=== PATIENT | female | born 1950 | race African-American/Black ===

== ENCOUNTER → 2016-10-05 | Outpatient (CLI) | payer OTHER ==
[~2016-10-05] MED LIST: CANA300T PO; CART240C4 PO; DORZ1SOL2 RIGHT EYE; DRIS8000 PO; GLUCTAB OR; HYDR-2768 PO; LATA0.00 RIGHT EYE; LORA5SOL3 PO; OMEP20TA PO; ROSU10 PO
[2016-10-05 09:18] LABS: HEMATOCRIT 41.7 % (35.0-46.0); MEAN CELL VOLUME 82.6 FL (80.0-100.0); MEAN CORPUSCULAR HGB CONC 32.7 % (32.0-36.0); PLATELET COUNT 340 TH/MM3 (150-450); RED BLOOD COUNT 5.05 MIL/MM3 (4.00-5.30); RED CELL DISTRIBUTION WIDTH 15.4 % (11.6-17.2)
[2016-10-05 09:19] LABS: HEMO FLAGS AUTO DIFF
[2016-10-05 09:42] LABS: ALKALINE PHOSPHATASE 92 U/L (45-117); ALT (GPT) 24 U/L (10-53); ANION GAP 8 MEQ/L (5-15); AST (GOT) 16 U/L (15-37); BICARBONATE 29.6 MEQ/L (21.0-32.0); BLOOD UREA NITROGEN 11 MG/DL (7-18); CHLORIDE 102 MEQ/L (98-107); GLOMERULAR FILTRATION RATE 67 ML/MIN (>89); GLUCOSE,FASTING 120 MG/DL (74-99); HDL CHOLESTEROL 52.4 MG/DL (40.0-60.0); LDL CHOLESTEROL 69 MG/DL (0-99); POTASSIUM 3.5 MEQ/L (3.5-5.1); SODIUM (NA) 140 MEQ/L (136-145); TOTAL BILIRUBIN ADULT 0.3 MG/DL (0.2-1.0)
[2016-10-05 10:09] LABS: BASOPHILS 2 % (0-2); NEUTROPHIL # MANUAL DIFF 4.1 TH/MM3 (1.8-7.7); POLYS (SEG NEUTROPHILS) 51 % (16-70); SCAN/DIFF FINAL DIFF MANUAL; WBC DIFF SAMPLE 100
== END ==
LOC: CLAB 08:51
PROVIDERS: ATTEND Family Medicine
DX: I10 Essential (primary) hypertension (principal); R91.8 Other nonspecific abnormal finding of lung field; E55.9 Vitamin D deficiency, unspecified; E11.9 Type 2 diabetes mellitus without complications; E78.2 Mixed hyperlipidemia; K22.70 Barrett's esophagus without dysplasia; J45.40 Moderate persistent asthma, uncomplicated; J30.9 Allergic rhinitis, unspecified; Z68.27 Body mass index [BMI] 27.0-27.9, adult
CPT/HCPCS: 36415; 80053; 80061; 82306; 85007; 85027

== ENCOUNTER 2017-01-30 22:39 | Observation (INO) | payer MEDICARE, OTHER ==
[~2017-01-30] VITALS: Ht 157.5 cm; Wt 68.0 kg
[2017-01-30 22:41] VITALS: BP 185/87; PULSE 87; RESP 16; TEMP 98.7; O2SAT 97
[2017-01-30 22:54] VITALS: BP 189/82; PULSE 16; PULSE 81; RESP 16
[2017-01-30 23:32] VITALS: BP 169/80; PULSE 73; RESP 20; O2SAT 98
[2017-01-30] MEDS ORDERED: FLUT1SPR5 EACH NARE (23:47)
[2017-01-30] MEDS ORDERED: HYDR25TA5 PO (23:47)
[2017-01-30] MEDS ORDERED: FLUT1INH INH ×2 (23:47)
[2017-01-30] MEDS ORDERED: vitamin D3 PO (23:47)
[2017-01-30] MEDS ORDERED: DORZ2SOL7 RIGHT EYE (23:47)
[2017-01-30] MEDS ORDERED: ROSU1TAB6 PO (23:47)
[2017-01-30] MEDS ORDERED: CART120C PO (23:47)
[2017-01-30] MEDS ORDERED: LATA0.002 RIGHT EYE (23:47)
[2017-01-30] MEDS ORDERED: METF500T PO (23:47)
[2017-01-30] MEDS ORDERED: MONT10TA4 PO (23:47)
[2017-01-30] MEDS ORDERED: DORZ2SOL RIGHT EYE (23:47)
[2017-01-30] MEDS ORDERED: EMPA1TAB3 PO (23:47)
[2017-01-30] MEDS ORDERED: zertec PO (23:47)
[2017-01-31] VITALS (8 sets, daily range): BP systolic 128–168; BP diastolic 66–103; PULSE 66–87; RESP 18–20; TEMP 98–98.1; O2SAT 94–98
[2017-01-31] MEDS ORDERED: SODIUM CHLORIDE 0.9% FLUSH 10 ML FLUSH IVF PRN
[2017-01-31] MEDS ORDERED: NITROGLYCERIN 2% OINT 1 GM PACKET TOP ONE
[2017-01-31] MEDS ORDERED: ASPIRIN 81 MG CHEW TAB PO ONE
--- NOTE | 2017-01-31 | PD ---
HPI Chief Complaint: Chest Pain Time Seen by Provider: 23:40 Travel History International Travel<30 days: No Contact w/Intl Traveler<30days: No Traveled to known affect area: No History of Present Illness HPI The patient is a 66 year old female who presents to the [facility] emergency department with a history of a sensation of fluttering in her chest that began at approximately 10 PM this evening. She was lying in bed when it occurred. She reports that her pulse palpated to be irregular. She reports that she felt Iike pulse was fast, however when she counted it was not. She reports that since then she's had intermittent chest pressure associated with this. The patient reports that the pain as a pressure/dull sensation. She reports that she is also having an intermittent "discomfort" in the left side of her jaw. She denies having any shortness of breath, nausea, vomiting, or diaphoresis associated with this. She denies having any prior history of cardiac disease. She does however have a history of diabetes, hyperlipidemia, and hypertension. She reports that she last had a stress test on approximately 2-3 years ago. On review of systems otherwise, the patient denies any recent fevers, worsening cough (she has a history of chronic cough for years), congestion, abdominal pain, diarrhea, urinary symptoms, or neurologic symptoms. [facility] Past Medical History Narrative Medical The patient's past medical history is significant for diabetes mellitus, acid reflux, Mendiola's esophagitis, hyperlipidemia, hypertension. Hx Anticoagulant Therapy: No Asthma: Yes Heart Rhythm Problems: No Cancer: No Cardiac Catheterization: No Cardiovascular Problems: Yes (htn) High Cholesterol: Yes (on meds) Congestive Heart Failure: No Diabetes: Yes (METFORMIN, JARDIANCE) Patient Takes Glucophage: Yes Diminished Hearing: No GERD: Yes Headaches: Yes (tonight and hx) Hepatitis: No Hiatal Hernia: Yes Heparin Induced Thrombocytopen: No Hypertension: Yes Medical other: Yes (REFLUX) Respiratory: Yes (ASTHMA) Myocardial Infarction: No Thyroid Disease: No Tetanus Vaccination: > 5 Years Influenza Vaccination: Yes ?: Not Past Surgical History Narrative Surgical The patient's past surgical history is significant for bilateral tubal ligation , right eye surgery 2, hysterectomy, Nancy fundoplication. AICD: No Coronary Artery Bypass Graft: No Eye Surgery: Yes (DETACTCHED RETINA RIGHT EYE REPAIR X2) Gynecologic Surgery: Yes (HYSTERECTOMY) Hysterectomy: Yes Joint Replacement: No Pacemaker: No Thoracic Surgery: Yes (RIGHT BREAST BX) Other Surgery: Yes (COLONOSCOPY AND ENDOSCOPY) Family History Family Myocardial Infarction: Yes Social History Alcohol Use: Yes (sip occ) Tobacco Use: No Substance Use: No Allergies-Medications (Allergen,Severity, Reaction): Coded Allergies: acetaminophen (Unverified Allergy, Severe, 01/16/17) propoxyphene (Unverified Allergy, Severe, 01/16/17) pentazocine (Unverified Allergy, Mild, Nausea/Vomiting, 01/16/17) Uncoded Allergies: MUCINEX (Allergy, Severe, 04/14/11) Reported Meds & Prescriptions Reported Meds & Active Scripts Active Reported Breo Ellipta Inh (Fluticasone/Vilanterol) 100-25 Mcg/Act Inh 1 Puff INH Use daily at the same time. Breo Ellipta Inh (Fluticasone/Vilanterol) 100-25 Mcg/Act Inh 1 Puff INH DAILY Use daily at the same time. Flonase Nasal [place] (Fluticasone Nasal [place]) 50 Mcg/Act [place] 50 Mcg EACH NARE Latanoprost Opth Drops (Latanoprost) 0.005% Drops 1 Drop RIGHT EYE HS Refrigerate until opened. Dorzolamide Opth Drops (Dorzolamide HCl) 2% Soln 1 Drop RIGHT EYE TID Cosopt Opth Drops (Dorzolamide-Timolol Opth Drops) 22.3-6.8 Mg/Ml Soln 1 Drop RIGHT EYE BID [zertec] 10 Mg PO DAILY [vitamin D3 ] 5,000 Unit PO DAILY Hydrochlorothiazide 25 Mg Tab 25 Mg PO DAILY Rosuvastatin (Rosuvastatin Calcium) 10 Mg Tab 10 Mg PO HS Jardiance (Empagliflozin) 25 Mg Tab 25 Mg PO DAILY Montelukast (Montelukast Sodium) 10 Mg Tab 10 Mg PO HS Metformin (Metformin HCl) 500 Mg Tab 500 Mg PO BID With meals Cartia Xt (Diltiazem ER 24 HR) 120 Mg Caper 240 Mg PO DAILY Review of Systems Except as stated in HPI: all other systems reviewed are Neg General / Constitutional: No: Fever Eyes: No: Visual changes HENT: No: Headaches, Congestion Cardiovascular: Positive: Chest Pain or Discomfort, No: Diaphoresis Respiratory: Positive: Cough (chronic cough), No: Shortness of Breath Gastrointestinal: No: Nausea, Vomiting, Diarrhea, Abdominal Pain Genitourinary: No: Dysuria Musculoskeletal: No: Pain Skin: No Rash Neurologic: No: Weakness, Focal Abnormalities, Change in Mentation, Slurred Speech, Sensory Disturbance Psychiatric: No: Depression Endocrine: No: Polydipsia Hematologic/Lymphatic: No: Easy Bruising Physical Exam Narrative General: The patient is a well-developed well-nourished female in no acute distress. Head and Neck exam: Head is normocephalic atraumatic. Eyes: EOMI, pupils and the left is round and reactive to light. Pupil on the right is irregular in shape related to prior eye surgery. Nose: Midline septum with pink mucous membranes Mouth: Dentition unremarkable. Moist mucus membranes. Posterior oropharynx is not erythematous. No tonsillar hypertrophy. Uvula midline. Airway patent. Neck: No palpable lymphadenopathy. No nuchal rigidity. No thyromegaly. Cardiovascular: Regular rate and rhythm without murmurs, gallops, or rubs. No pulse deficit to the extremities and simultaneous auscultation and palpation of her radial artery. Lungs: Clear to auscultation bilaterally. No wheezes, rhonchi, or rales. Abdomen: Soft, without tenderness to palpation in all 4 quadrants of the abdomen. No guarding, rebound, or rigidity. Negative [place] sign. Extremities: No clubbing, cyanosis, or edema. 2+ pulses in all 4 extremities. No calf tenderness on palpation. Back: No costovertebral angle tenderness to palpation. No spinous process tenderness to palpation. Neurologic Exam: Grossly nonfocal. Skin Exam: No rash noted. Intact skin that is warm and dry. Data Data Last Documented VS Vital Signs Date Time Temp Pulse Resp B/P (MAP) Pulse Ox O2 Delivery O2 Flow Rate FiO2 01/31/17 00:29 87 20 142/70 (94) 97 Room Air 141/68 (92) 01/30/17 22:41 98.7 Orders Orders Electrocardiogram (01/30/17 23:48) B-Type Natriuretic Peptide (01/30/17 23:48) Ckmb (Isoenzyme) Profile (01/30/17 23:48) Complete Blood Count With Diff (01/30/17 23:48) Comprehensive Metabolic Panel (01/30/17 23:48) Magnesium (Mg) (01/30/17 23:48) Prothrombin Time / Inr (Pt) (01/30/17 23:48) Act Partial Throm Time (Ptt) (01/30/17 23:48) Troponin I (01/30/17 23:48) Lipase (01/30/17 23:48) Chest, Single Ap (01/30/17 23:48) Ecg Monitoring (01/30/17 23:48) Bilateral Bp Monitoring (01/30/17 23:48) Iv Access Insert/Monitor (01/30/17 23:48) Oximetry (01/30/17 23:48) Oxygen Administration (01/30/17 23:48) Aspirin Chew (Aspirin Chew) (01/31/17 00:00) Nitroglycerin 2% Oint (Nitroglycerin 2% (01/31/17 00:00) Sodium Chloride 0.9% Flush (Ns Flush) (01/31/17 00:00) Nitroglycerin Sl (Nitrostat Sl) (01/31/17 00:00) CKMB (01/30/17 23:55) CKMB% (01/30/17 23:55) Admit Order (Ed Use Only) (01/31/17 01:17) Potassium Chloride (Kcl) (01/31/17 01:30) Labs Laboratory Tests Test 01/30/17 23:55 White Blood Count 10.5 TH/MM3 Red Blood Count 5.13 MIL/MM3 Hemoglobin 14.3 GM/DL Hematocrit 43.4 % Mean Corpuscular Volume 84.5 FL Mean Corpuscular Hemoglobin 27.9 PG Mean Corpuscular Hemoglobin Concent 33.0 % Red Cell Distribution Width 15.6 % Platelet Count 316 TH/MM3 Mean Platelet Volume 8.6 FL Neutrophils (%) (Auto) 57.6 % Lymphocytes (%) (Auto) 32.6 % Monocytes (%) (Auto) 6.9 % Eosinophils (%) (Auto) 1.2 % Basophils (%) (Auto) 1.7 % Neutrophils # (Auto) 6.0 TH/MM3 Lymphocytes # (Auto) 3.4 TH/MM3 Monocytes # (Auto) 0.7 TH/MM3 Eosinophils # (Auto) 0.1 TH/MM3 Basophils # (Auto) 0.2 TH/MM3 CBC Comment DIFF FINAL Differential Comment Prothrombin Time 10.4 SEC Prothromb Time International Ratio 0.9 RATIO Activated Partial Thromboplast Time 27.8 SEC Blood Urea Nitrogen 10 MG/DL Creatinine 1.10 MG/DL Random Glucose 137 MG/DL Total Protein 7.5 GM/DL Albumin 4.0 GM/DL Calcium Level 9.2 MG/DL Magnesium Level 2.0 MG/DL Alkaline Phosphatase 106 U/L Aspartate Amino Transf (AST/SGOT) 12 U/L Alanine Aminotransferase (ALT/SGPT) 28 U/L Total Bilirubin 0.3 MG/DL Sodium Level 142 MEQ/L Potassium Level 3.2 MEQ/L Chloride Level 104 MEQ/L Carbon Dioxide Level 26.5 MEQ/L Anion Gap 12 MEQ/L Estimat Glomerular Filtration Rate 60 ML/MIN Total Creatine Kinase 133 U/L Creatine Kinase MB 0.6 NG/ML Troponin I LESS THAN 0.02 NG/ML B-Type Natriuretic Peptide 4 PG/ML Lipase 172 U/L MDM Medical Decision Making Medical Screen Exam Complete: Yes Emergency Medical Condition: Yes Medical Record Reviewed: Yes Interpretation(s) Last Impressions Chest X-Ray 01/30/17 7323 Signed Impressions: Service Date/Time: Monday, January 30, 2017 23:59 - CONCLUSION: No acute cardiopulmonary abnormality is identified. Link Maxwell MD Differential Diagnosis Acute coronary syndrome, versus SVT, versus PACs, versus V. tach Narrative Course During the course of the patients emergency department visit, the patients history, examination, and differential diagnosis were reviewed with the patient. The patient had IV access obtained and blood work sent for analysis. The patient had an EKG done on arrival that shows a sinus rhythm with a sinus arrhythmia, heart rate is 76, nonspecific T-wave abnormalities, T waves are inverted in V1, no acute ST segment elevation. QRS duration is 84 ms, QTC 342 ms. The patient was initially provided 324 mg of aspirin by mouth. The patient was given sublingual nitroglycerin 1, nitroglycerin 1 inch to the chest wall. The patients laboratory studies were reviewed and remarkable for a CBC that is within normal limits, CMP is remarkable for potassium of 3.2, her potassium was supplemented with 20 mg once a potassium chloride. AST is 12, glucose 137, initial set of cardiac enzymes are negative, BNP 4, lipase 172, PT PTT within normal limits. Radiology studies were reviewed and remarkable for a chest x-ray that showed no acute cardiopulmonary disease. The patient was agreeable with the plan for admission to the chest pain center for rule out serial cardiac enzyme protocol followed by stress testing. The patients results were discussed with the patient, including the plan of care. I explained that further testing and/ or monitoring is indicated based on the patients history, examination, and/ or laboratory findings. Therefore, I recommended admission for additional evaluation. The patient expressed understanding and was agreeable with this plan. The patient was admitted to the hospital in stable condition and sent to a bed under the care of chest pain center. Diagnosis Primary Impression: Chest pain, rule out acute myocardial infarction Admitting Information Admitting Physician Requests: Saima Bourgeois MD Jan 31, 2017 00:00
[2017-01-31] MEDS: NITROGLYCERIN 0.4 MG SL 25 TABS/BTL SL ONE ×2 (00:01→00:24)
--- NOTE | 2017-01-31 00:08 | RADRPT ---
EXAM DATE/TIME: 01/30/2017 23:59 [facility] COMPARISON: No previous studies available for comparison. INDICATIONS : Chest pain. MEDICAL HISTORY : None. SURGICAL HISTORY : None. ENCOUNTER: Initial ACUITY: 1 day PAIN SCORE: 4/10 LOCATION: Left chest FINDINGS: Portable AP view of the chest demonstrates a normal-sized cardiac silhouette. No effusion, consolidat ion, or pneumothorax is visualized. The bones and soft tissues demonstrate no acute abnormality. EKG lines overlie the patient. Lungs are underinflated. CONCLUSION: No acute cardiopulmonary abnormality is identified. Link Maxwell MD on January 31, 2017 at 0:06 Board Certified Radiologist. This report was verified electronically.
[2017-01-31 00:20] LABS: BASOPHIL # 0.2 TH/MM3 (0-0.2); BASOPHIL % 1.7 % (0.0-2.0); EOSINOPHIL # 0.1 TH/MM3 (0-0.4); EOSINOPHIL % 1.2 % (0.0-4.0); HEMATOCRIT 43.4 % (35.0-46.0); HEMO FLAGS DIFF FINAL; LYMPH % 32.6 % (9.0-44.0); LYMPHOCYTE # 3.4 TH/MM3 (1.0-4.8); MEAN CELL VOLUME 84.5 FL (80.0-100.0); MEAN CORPUSCULAR HEMOGLOBIN 27.9 PG (27.0-34.0); MONO % 6.9 % (0.0-8.0); NEUT % 57.6 % (16.0-70.0); PLATELET COUNT 316 TH/MM3 (150-450); RED BLOOD COUNT 5.13 MIL/MM3 (4.00-5.30); RED CELL DISTRIBUTION WIDTH 15.6 % (11.6-17.2); WHITE BLOOD COUNT 10.5 TH/MM3 (4.0-11.0)
[2017-01-31 00:31] LABS: APTT (PATIENT) 27.8 SEC (24.3-30.1); INTERNATIONAL NORMALIZED RATIO 0.9 RATIO; PROTHROMBIN TIME - PATIENT 10.4 SEC (9.8-11.6)
[2017-01-31 00:33] LABS: ANION GAP 12 MEQ/L (5-15); AST (GOT) 12 U/L (15-37); BICARBONATE 26.5 MEQ/L (21.0-32.0); BLOOD UREA NITROGEN 10 MG/DL (7-18); CHLORIDE 104 MEQ/L (98-107); GLOMERULAR FILTRATION RATE 60 ML/MIN (>89); POTASSIUM 3.2 MEQ/L (3.5-5.1); SODIUM (NA) 142 MEQ/L (136-145)
[2017-01-31 00:34] LABS: ALT (GPT) 28 U/L (10-53)
[2017-01-31 00:38] LABS: ALKALINE PHOSPHATASE 106 U/L (45-117); CREATINE KINASE 133 U/L (26-192); TOTAL BILIRUBIN ADULT 0.3 MG/DL (0.2-1.0)
[2017-01-31 00:52] LABS: CKMB 0.6 NG/ML (0.5-3.6)
[2017-01-31] MEDS ORDERED: POTASSIUM CHLORIDE 20 MEQ CONTROLLED RELEASE TAB PO ONE (01:30)
[2017-01-31] MEDS ORDERED: SODIUM CHLORIDE 0.9% FLUSH 10 ML FLUSH IV FLUSH PRN (02:00)
[2017-01-31 04:07] LABS: CREATINE KINASE 115 U/L (26-192)
[2017-01-31 04:20] LABS: CKMB 0.5 NG/ML (0.5-3.6)
[2017-01-31 07:44] LABS: CREATINE KINASE 105 U/L (26-192)
[2017-01-31 07:57] LABS: CKMB 0.5 NG/ML (0.5-3.6)
--- NOTE | 2017-01-31 08:36 | HHI.HP ---
HPI Primary Care Physician Adrian Spain MD Chief Complaint Cardiac complaint History of Present Illness 66-year-old female with history of hypertension and diabetes presents to emergency room for further evaluation palpitations. Onset last night 10 PM. Location substernal. Characterized as a pounding and irregular heart beat. No chest pain or pressure. No associated symptoms of nausea, vomiting, diaphoresis , dizziness, or shortness of breath. Duration one hour. No known precipitating or relieving factors. Endorses similar discomfort in the past and shorter duration. Has notified her PCP regarding palpitations in the past. Review of Systems General: No fatigue,weakness, fever, chills, or recent illness. Has been in her general state of health. HEENT: History of x2 retinal detachments. No LI. CV: As stated above. No current CP or pressure. Reports long history of intermitted palpitations. Does not develop dizziness with palpations. No intermittent leg pain. RESP: No SOB, cough, wheeze, or sputum production. GI: No nausea, vomiting, bowel changes, diarrhea, pain, distention, melena, or blood in the stool. Occasional dysphasia, chronic stable she relates to long history acid reflux. Nissenwrap procedure 4 years ago. No change in appetite, no unintentional weight gain or weight loss. : No dysuria, no frequent UTIs, no history of kidney stones EXT: Occasional intermittent dependent lower leg edema relieved with elevation of legs, no paraesthesias. MS: No discomfort or change in ROM NEURO: No difficulty with balance, LOC, motor/sensory deficits PSYCH: No anxiety, depression, or situation stress SKIN: No rashes, no concerning lesions Past Family Social History Allergies: Coded Allergies: acetaminophen (Unverified Allergy, Severe, 01/16/17) propoxyphene (Unverified Allergy, Severe, 01/16/17) pentazocine (Unverified Allergy, Mild, Nausea/Vomiting, 01/16/17) Uncoded Allergies: MUCINEX (Allergy, Severe, 04/14/11) Past Medical History Diabetes-non insulin dependent type II, HTN, hyperlipidemia, Mendiola's esophagus Past Surgical History Hysterectomy, x2 Right eye surgery for retinal detachment, Nancy Fundoplication (04/17/11), Tubal ligation Reported Medications Active Reported Breo Ellipta Inh (Fluticasone/Vilanterol) 100-25 Mcg/Act Inh 1 Puff INH Use daily at the same time. Breo Ellipta Inh (Fluticasone/Vilanterol) 100-25 Mcg/Act Inh 1 Puff INH DAILY Use daily at the same time. Flonase Nasal [place] (Fluticasone Nasal [place]) 50 Mcg/Act [place] 50 Mcg EACH NARE Latanoprost Opth Drops (Latanoprost) 0.005% Drops 1 Drop RIGHT EYE HS Refrigerate until opened. Dorzolamide Opth Drops (Dorzolamide HCl) 2% Soln 1 Drop RIGHT EYE TID Cosopt Opth Drops (Dorzolamide-Timolol Opth Drops) 22.3-6.8 Mg/Ml Soln 1 Drop RIGHT EYE BID [zyrtec] 10 Mg PO DAILY [vitamin D3 ] 5,000 Unit PO DAILY Hydrochlorothiazide 25 Mg Tab 25 Mg PO DAILY Rosuvastatin (Rosuvastatin Calcium) 10 Mg Tab 10 Mg PO HS Jardiance (Empagliflozin) 25 Mg Tab 25 Mg PO DAILY Montelukast (Montelukast Sodium) 10 Mg Tab 10 Mg PO HS Metformin (Metformin HCl) 500 Mg Tab 500 Mg PO BID With meals Cartia Xt (Diltiazem ER 24 HR) 120 Mg Caper 240 Mg PO DAILY Active Ordered Medications Current Medications Medications (Trade) Dose Ordered Sig/Igor Route Start Time Stop Time Status Last Admin (NS Flush) 2 ml UNSCH PRN IVF 01/31/17 00:00 (NS Flush) 2 ml UNSCH PRN IV FLUSH 01/31/17 02:00 (NS Flush) 2 ml BID IV FLUSH 01/31/17 09:00 Family History Noncontributory for early onset cardiovascular disease. Social History Known diabetes, hyperlipidemia, and hypertension. No known coronary artery disease. Lifelong nonsmoker. Denies any alcohol intake. No illegal drug use. . Denies any purposeful daily exercise. Past Cardiac Testing 05/16/10-Treadmill stress test-negative for stress induced ischemia. walked 6 minutes 39 seconds Physical Exam Vital Signs Vital Signs Date Time Temp Pulse Resp B/P (MAP) Pulse Ox O2 Delivery O2 Flow Rate FiO2 01/31/17 07:37 98.0 79 18 130/73 (92) 94 01/31/17 03:59 97 01/31/17 03:01 98.1 66 18 131/66 (87) 97 01/31/17 01:32 73 18 128/66 (86) 98 Room Air 01/31/17 00:29 87 20 142/70 (94) 97 Room Air 141/68 (92) 01/31/17 00:24 Room Air 01/31/17 00:24 96 Room Air 01/31/17 00:01 168/103 (124) 01/30/17 23:32 73 20 169/80 (109) 98 Room Air 01/30/17 23:32 99 Room Air 01/30/17 22:54 81 16 189/82 (117) 01/30/17 22:41 98.7 87 16 185/87 (119) 97 Room Air Physical Exam GENERAL: Alert WN, WD, NAD, pleasant, female who appears younger than stated age NECK: Supple, no masses, trachea midline CV: Regular, irregularly rate, without murmur, rub, gallop, no JVD, S1-S2 no S3- S4. No carotid or femoral bruits. RESP: Clear lungs throughout bilateral, no crackles, wheeze, rhonchi, symmetrical chest rise, nonlabored, able to speak in full sentences ABD: Soft, NT, ND, no masses, positive bowel tones BACK: No CVAT, no scoliosis EXT: Pulses +24, no dependent edema MS: Normal tone 4 extremities, nontender, no obvious deformities, full range of motion NEURO: CN II through CN XII grossly intact, motor strength 5/5,L PSYCH: A+O 3, pleasant affect, appropriate speech, appropriate mood and affect , insight and judgment SKIN: Normal turgor, normal texture, no lesions, no rashes, brisk cap refill Laboratory Laboratory Tests Test 01/30/17 23:55 01/31/17 03:00 01/31/17 06:40 White Blood Count 10.5 Red Blood Count 5.13 Hemoglobin 14.3 Hematocrit 43.4 Mean Corpuscular Volume 84.5 Mean Corpuscular Hemoglobin 27.9 Mean Corpuscular Hemoglobin Concent 33.0 Red Cell Distribution Width 15.6 Platelet Count 316 Mean Platelet Volume 8.6 Neutrophils (%) (Auto) 57.6 Lymphocytes (%) (Auto) 32.6 Monocytes (%) (Auto) 6.9 Eosinophils (%) (Auto) 1.2 Basophils (%) (Auto) 1.7 Neutrophils # (Auto) 6.0 Lymphocytes # (Auto) 3.4 Monocytes # (Auto) 0.7 Eosinophils # (Auto) 0.1 Basophils # (Auto) 0.2 CBC Comment DIFF FINAL Differential Comment Prothrombin Time 10.4 Prothromb Time International Ratio 0.9 Activated Partial Thromboplast Time 27.8 Blood Urea Nitrogen 10 Creatinine 1.10 Random Glucose 137 Total Protein 7.5 Albumin 4.0 Calcium Level 9.2 Magnesium Level 2.0 Alkaline Phosphatase 106 Aspartate Amino Transf (AST/SGOT) 12 Alanine Aminotransferase (ALT/SGPT) 28 Total Bilirubin 0.3 Sodium Level 142 Potassium Level 3.2 Chloride Level 104 Carbon Dioxide Level 26.5 Anion Gap 12 Estimat Glomerular Filtration Rate 60 Total Creatine Kinase 133 115 105 Creatine Kinase MB 0.6 0.5 0.5 Troponin I LESS THAN 0.02 LESS THAN 0.02 LESS THAN 0.02 B-Type Natriuretic Peptide 4 Lipase 172 Result Diagram: 01/30/17 23501/30/17 235 Imaging Last Impressions Chest X-Ray 01/30/178 Signed Impressions: Service Date/Time: Monday, January 30, 2017 23:59 - CONCLUSION: No acute cardiopulmonary abnormality is identified. Link Maxwell MD Course EKG 1st degree AVB, NSR, normal axis, no st t segment changes Caprini VTE Risk Assessment Caprini VTE Risk Assessment: Mod/High Risk (score >= 2) Caprini Risk Assessment Model Point Value = 1 Point Value = 2 Point Value = 3 Point Value = 5 Age 41-60 Minor surgery BMI > 25 kg/m2 Swollen legs Varicose veins or History of unexplained or recurrent spontaneous Oral contraceptives or hormone replacement Sepsis (< 1 month) Serious lung disease, including pneumonia (< 1 month) Abnormal pulmonary function Acute myocardial infarction Congestive heart failure (< 1 month) History of inflammatory bowel disease Medical patient at bed rest Age 61-74 Arthroscopic surgery Major open surgery (> 45 min) Laparoscopic surgery (> 45 min) Malignancy Confined to bed (> 72 hours) Immobilizing plaster cast Central venous access Age >= 75 History of VTE Family history of VTE Factor V Leiden Prothrombin 29621C Lupus anticoagulant Anticardiolipin antibodies Elevated serum homocysteine Heparin-induced thrombocytopenia Other congenital or acquired thrombophilia Stroke (< 1 month) Elective arthroplasty Hip, pelvis, or leg fracture Acute spinal cord injury (< 1 month) Prophylaxis Regimen Total Risk Factor Score Risk Level Prophylaxis Regimen 0-1 Low Early ambulation 2 Moderate Order ONE of the following: *Sequential Compression Device (SCD) *Heparin 5000 units SQ BID 3-4 Higher Order ONE of the following medications: *Heparin 5000 units SQ TID *Enoxaparin/Lovenox 40 mg SQ daily (WT < 150 kg, CrCl > 30 mL/min) *Enoxaparin/Lovenox 30 mg SQ daily (WT < 150 kg, CrCl > 10-29 mL/min) *Enoxaparin/Lovenox 30 mg SQ BID (WT < 150 kg, CrCl > 30 mL/min) AND/OR *Sequential Compression Device (SCD) 5 or more Highest Order ONE of the following medications: *Heparin 5000 units SQ TID (Preferred with Epidurals) *Enoxaparin/Lovenox 40 mg SQ daily (WT < 150 kg, CrCl > 30 mL/min) *Enoxaparin/Lovenox 30 mg SQ daily (WT < 150 kg, CrCl > 10-29 mL/min) *Enoxaparin/Lovenox 30 mg SQ BID (WT < 150 kg, CrCl > 30 mL/min) AND *Sequential Compression Device (SCD) Assessment and Plan Assessment and Plan #1 Palpations-admitted to chest pain center. Ruled out with 3 sets EKGs, cardiac enzymes, and monitored overnight. Seen and evaluated by Dr. Miguel Berrios. Proceed with chemical stress test. If unremarkable, will later discharge this afternoon. Patient agreeable to plan of care. Reassurance provided palpitations benign most likely related to PVCs. shelter monitor reviewed and without acute findings. #2 Diabetes-hold metformin and Jardiance #3 Hypertension-continue diltiazem and HCTZ, discussed importance of tight blood pressure control and following a low sodium diet, increasing her daily activity including purposeful cardiovascular exercise. Darlin Salmeron Jan 31, 2017 08:36
[2017-01-31] MEDS ORDERED: SODIUM CHLORIDE 0.9% FLUSH 10 ML FLUSH IV FLUSH SCH (09:00)
[2017-01-31] MEDS ORDERED: REGADENOSON INJ 0.4 MG/5 ML SYR ONE (10:54)
[2017-01-31] MEDS ORDERED: HYDROCHLOROTHIAZIDE 25 MG TAB PO SCH (11:15)
[2017-01-31] MEDS ORDERED: DILTIAZEM-CD 120 MG CAP ER PO SCH (11:15)
[2017-01-31] MEDS ORDERED: RESP: ALBUTEROL 2.5 MG/3 ML NEB (PRN) NEB (11:30)
[2017-01-31] MEDS ORDERED: FLUTICASONE 100 MCG/VILANTEROL 25 MCG INHALER INH SCH (12:00)
--- NOTE | 2017-01-31 13:14 | RADRPT ---
EXAM DATE/TIME: 01/31/2017 10:38 [facility] COMPARISON: No previous studies available for comparison. INDICATIONS : Chest pressure andfluttering feeling. Angina. DOSE: 25.8 mCi Tc99m Myoview at stress. 8.4 mCi Tc99m Myoview at rest. 0.4 mg Lexiscan STRESS SYMPTOMS: Dyspnea, abdominal cramping and headache. EJECTION FRACTION: > 70% MEDICAL HISTORY : Gastroesophageal reflux disease. Hypercholesterolemia. Hypertension. Asthma. SURGICAL HISTORY : Hysterectomy. ENCOUNTER: Initial ACUITY: 1 day PAIN SCALE: 3/10 LOCATION: chest TECHNIQUE: The patient underwent pharmacologic stress with infusion of prescribed dose. Continuous ECG tracing was monitored during stress. Gated SPECT imaging was performed after stress and conventional SPECT i maging was performed at rest. The examination was performed on a SPECT/CT scanner, both attenuation and non-corrected datasets were reviewed. FINDINGS: DISTRIBUTION: The maximum perfused segment at stress is in the posterobasal wall. PERFUSION STUDY: The pattern of perfusion at stress is within normal limits. GATED STUDY: There is intact wall motion and thickening without hypokinetic or dyskinetic segments. CONCLUSION: Normal examination. RISK CATEGORY: Low (<1% Annual Mortality Rate) Link Lunsford MD on January 31, 2017 at 13:11 Board Certified Radiologist. This report was verified electronically.
--- NOTE | 2017-01-31 13:24 | HHI.DCPOC ---
Discharge Care Plan Diagnosis: (1) Atypical chest pain Goals to Promote Your Health * To prevent worsening of your condition and complications * To maintain your health at the optimal level Directions to Meet Your Goals Take your medications as prescribed Follow your dietary instruction Follow activity as directed Keep your appointments as scheduled Take your immunizations and boosters as scheduled If your symptoms worsen call your PCP, if no PCP go to Urgent Care Center or Emergency Room Smoking is Dangerous to Your Health. Avoid second hand smoke Call the 24-hour hour crisis hotline for domestic abuse at Darlin Salmeron Jan 31, 2017 13:24
--- NOTE | 2017-02-01 18:17 | TR ---
Date Performed: 01/31/2017 Time Performed: 11:21:07 DOCTOR: Gabby Garcia DRUG LIST: CLINICAL HISTORY: REASON FOR TEST: CHEST PAIN REASON FOR ENDING: OBSERVATION: CONCLUSION: Lexiscan stress test was performed under standard four minute protocol. Radionuclid e was injected one minute prior to ending the test. No electrocardiographic abormalities were present to suggest ischemia. Nuclear imaging and interpretation are pending. COMMENTS:
--- NOTE | 2017-02-01 18:19 | EKG ---
Date Performed: 01/31/2017 Time Performed: 06:57:59 PTAGE: 66 years EKG: Sinus rhythm MINIMAL VOLTAGE CRITERIA FOR LVH, CONSIDER NORMAL VARIANT BORDERLINE ECG Since PREVIOUS TRACING , no significant change noted PREVIOUS TRACIN01/31/2017 06.57 DOCTOR: Gabby Garcia Interpretating Date/Time 02/01/2017 18:18:52
--- NOTE | 2017-02-01 18:19 | EKG ---
Date Performed: 01/31/2017 Time Performed: 02:58:30 PTAGE: 66 years EKG: Sinus rhythm WITH FIRST DEGREE AV BLOCK MODERATE VOLTAGE CRITERIA FOR LVH, CONSIDER NORMAL VARIANT ABNORMAL ECG S wenceslao PREVIOUS TRACING , no significant change noted PREVIOUS TRACIN01/31/2017 02.57 DOCTOR: Gabby Garcia Interpretating Date/Time 02/01/2017 18:19:36
--- NOTE | 2017-02-01 18:20 | EKG ---
Date Performed: 01/30/2017 Time Performed: 23:04:58 PTAGE: 66 years EKG: Sinus rhythm WITH SINUS ARRHYTHMIA VOLTAGE CRITERIA FOR LVH NONSPECIFIC T-WAVE ABNORMALITY ABNORMAL ECG Since PREVIOUS TRACING , no significant change noted PREVIOUS TRACIN09/01/2015 11.55 DOCTOR: Gabby Garcia Interpretating Date/Time 02/01/2017 18:19:58
[2017-02-02] MEDS ORDERED: CHOL5000 PO (10:56)
[2017-02-02] MEDS ORDERED: CETI10 PO (10:56)
== END 2017-01-31 17:22 | disposition home or self-care (01) ==
LOC: NEPE 22:39 → NEDA 01-31 01:19 → NEPHCDU 01-31 02:15
PROVIDERS: ADMIT Internal Medicine Interventional Cardiology; ATTEND Internal Medicine Interventional Cardiology
DX: R07.89 Other chest pain (principal); R00.2 Palpitations; E11.9 Type 2 diabetes mellitus without complications; I10 Essential (primary) hypertension; K22.70 Barrett's esophagus without dysplasia; K21.9 Gastro-esophageal reflux disease without esophagitis; J45.909 Unspecified asthma, uncomplicated; E78.00 Pure hypercholesterolemia, unspecified; R51 Headache; R94.31 Abnormal electrocardiogram [ECG] [EKG]
CPT/HCPCS: 71010; 78452; 80053; 82550; 82552; 83690; 83735; 83880; 84484; 85025; 85610; 85730; 93005; 93017; 99285; A9502; G0378; J2785

== ENCOUNTER → 2017-07-16 | Outpatient (CLI) | payer OTHER ==
[~2017-07-16] MED LIST changes: -CANA300T PO; +CART120C PO; -CART240C4 PO; +CETI10 PO; +CHOL5000 PO; -DORZ1SOL2 RIGHT EYE; +DORZ2SOL7 RIGHT EYE; -DRIS8000 PO; +EMPA1TAB3 PO; +FLUT1INH INH; +FLUT1SPR5 EACH NARE; -GLUCTAB OR; -HYDR-2768 PO; +HYDR25TA5 PO; -LATA0.00 RIGHT EYE; +LATA0.002 RIGHT EYE; -LORA5SOL3 PO; +METF500T PO; +MONT10TA4 PO; -OMEP20TA PO; -ROSU10 PO; +ROSU1TAB6 PO
[2017-07-16 10:13] LABS: BASOPHIL # 0.1 TH/MM3 (0-0.2); BASOPHIL % 1.3 % (0.0-2.0); EOSINOPHIL # 0.2 TH/MM3 (0-0.4); EOSINOPHIL % 3.1 % (0.0-4.0); HEMATOCRIT 42.1 % (35.0-46.0); HEMOGLOBIN 13.5 GM/DL (11.6-15.3); LYMPH % 30.9 % (9.0-44.0); LYMPHOCYTE # 2.2 TH/MM3 (1.0-4.8); MEAN CELL VOLUME 85.5 FL (80.0-100.0); MEAN CORPUSCULAR HEMOGLOBIN 27.4 PG (27.0-34.0); MEAN CORPUSCULAR HGB CONC 32.1 % (32.0-36.0); MEAN PLATELET VOLUME 8.5 FL (7.0-11.0); MONO % 8.1 % (0.0-8.0); MONOCYTE # 0.6 TH/MM3 (0-0.9); NEUT % 56.6 % (16.0-70.0); PLATELET COUNT 291 TH/MM3 (150-450); RED BLOOD COUNT 4.93 MIL/MM3 (4.00-5.30); RED CELL DISTRIBUTION WIDTH 16.1 % (11.6-17.2); WHITE BLOOD COUNT 7.1 TH/MM3 (4.0-11.0)
[2017-07-16 10:40] LABS: CHOLESTEROL/ HDL RATIO 2.81 RATIO; HDL CHOLESTEROL 56.8 MG/DL (40.0-60.0)
== END ==
LOC: CLAB 09:30
PROVIDERS: ATTEND Family Medicine
DX: E78.2 Mixed hyperlipidemia (principal); E55.9 Vitamin D deficiency, unspecified; R05 Cough
CPT/HCPCS: 36415; 80061; 82306; 82785; 85025; 86140

== ENCOUNTER → 2017-10-17 | Outpatient (CLI) | payer OTHER, MEDICARE ==
[~2017-10-17] VITALS: Ht 157.5 cm; Wt 69.6 kg
[~2017-10-17] MED LIST changes: +CHLORHEXIDINE GLUCONATE 2 % 1 PACK (2 CLOTHS) TOPICAL PRN; +ESTR1TAB PO; +LACTATED RINGER'S 1000 ML IV PRN; +LIDOCAINE HCL 1% PF 5 ML SYRINGE OTHER ONE; +METOPROLOL TARTRATE 25 MG TAB PO PRN; +OXYB5TAB8 PO; +PHENYLEPH/NS 1000 MCG/10 ML SYR IV ONE; +POVIDONE IODINE 5% (ANTISEPSIS KIT) 4 APPLICATIONS EACH NARE PRN; +PROPOFOL 200 MG/20 ML AMP IV ONE; +SODIUM CHLORID 0.9% 500 ML IV PRN
--- NOTE | 2017-10-17 13:31 | GIPROC ---
[facility] [address] [facility]. 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 She experiences dysphagia for solids occasionally. PROCEDURE PERFORMED: EGD w/ biopsy EGD w/ balloon dilation of esophagus MEDICATIONS: Per Anesthesia and None. TOPICAL ANESTHETIC: CONSENT: The patient understands the risks and benefits of the procedure and understands that these risks include, but are not limited to: sedation, allergic reaction, infection, perforation and/or bleeding. Alternative means of evaluation and treatment include, among others: physical exam, x-rays, and/or surgical intervention. The patient elects to proceed with this endoscopic procedure. medical equipment was checked for proper function. Hand hygiene and appropriate measures for infection prevention was taken. After the risks, benefits and alternatives of the procedure were thoroughly explained, Informed consent was verified, confirmed and timeout was successfully executed by the treatment team. The patient was anesthetized with topical anesthesia and the [employer] Tele[employer] [id number] endoscope was introduced through the mouth and advanced to the . Retroflexion was performed and was normal The gastroscope was then slowly withdrawn and removed. A small island of columnar mucosa was noted just proximal to the GE junction; biopsies were taken. A mild Schatzki ring was noted at the G E junction, at 35cm from the incisors. It was dilated to 20mm using an Olympus, 18-19-20mm hydrostatic dilating balloon. Even at full inflation. the balloon did not grab the ring, suggesting the ring was wider than 20mm. The stomach, pylorus, duodenal bulb and sweep appeared normal. ADVERSE EVENTS: There were no complications. IMPRESSIONS: Retroflexion was performed and was normal. As above. RECOMMENDATIONS: Resume anti-reflux regimen and omeprazole. Will contact patient with biopsy results. Repeat EGD in three years. Cut food small and chew thoroughly. PATIENT CONDITION: stable DISPOSITION: REPEAT EXAM: Temo Medina MD eSigned: Temo Medina MD 10/17/2017 1:31 PM cc: Adrian Spain M.D. PATIENT NAME: Okeefe Allison G MR#: [id number]
[2017-10-17 13:58] VITALS: BP 129/82; PULSE 73; RESP 20; TEMP 98; O2SAT 97
== END ==
LOC: HSDC 10:22
DX: K22.2 Esophageal obstruction (principal); K22.70 Barrett's esophagus without dysplasia; K20.9 Esophagitis, unspecified; I10 Essential (primary) hypertension; E11.9 Type 2 diabetes mellitus without complications; E78.00 Pure hypercholesterolemia, unspecified
CPT/HCPCS: 00731; 43239; 43249; 88305; C1726; J2370